=== PATIENT | male | born 1995 | race Caucasian/White ===

== ENCOUNTER → 2018-11-12 | Outpatient (CLI) | payer BC | LOC: COL.RAD 14:31 | DX: R10.31 Right lower quadrant pain (principal); R11.0 Nausea | CPT/HCPCS: Q9967 ==

== ENCOUNTER 2020-04-07 12:59 | Emergency (ER) | payer SELFPAY ==
[~2020-04-07] VITALS: Ht 180.3 cm; Wt 77.3 kg
[2020-04-07 13:00] VITALS: TEMP 97.9
[2020-04-07] MEDS ORDERED: ZOFRAN ODT4 MG PO ×2 (13:15)
[2020-04-07] MEDS ORDERED: NORCO 325 MG-101 TAB PO ×2 (13:15)
[2020-04-07 13:24] LABS: HEMATOCRIT 47.3 % (42.0-52.0); HEMOGLOBIN 16.5 g/dl (13.5-18.0); MEAN CELL VOLUME 93 fl (80.0-100.0); MEAN CORPUSCULAR HEMOGLOBIN 32 pg (27.0-31.0); MEAN CORPUSCULAR HGB CONC 35 g/dl (33.0-37.0); PLATELET COUNT 237 K/mm3 (130-400); RED BLOOD COUNT 5.11 M/mm3 (4.20-5.60); REDCELL DISTRIBUTION WIDTH-CV 11.9 % (11.5-14.5)
[2020-04-07 13:30] LABS: CREATININE, serum 1.02 (0.66-1.25); POTASSIUM 3.8 mmol/L (3.4-5.0)
[2020-04-07 15:52] VITALS: BP 136/75; PULSE 106
== END 2020-04-07 15:53 | disposition home or self-care (01) ==
LOC: COL.ER 12:59
PROVIDERS: Emergency Medicine
DX: S42.002A Fracture of unspecified part of left clavicle, initial encounter for closed fracture (principal); S42.202A Unspecified fracture of upper end of left humerus, initial encounter for closed fracture; S12.601A Unspecified nondisplaced fracture of seventh cervical vertebra, initial encounter for closed fracture; J93.9 Pneumothorax, unspecified; V89.2XXA Person injured in unspecified motor-vehicle accident, traffic, initial encounter
CPT/HCPCS: J1170; J2405; J3010; Q9967